=== PATIENT | female | born 1950 | race Caucasian/White ===

== ENCOUNTER 2021-10-06 14:20 | Outpatient (CLI) | payer OTHER, SELFPAY | END 2021-10-06 14:21 | disposition home or self-care (01) | LOC: LKVREF 14:21 | PROVIDERS: Visit Provider Student in an Organized Health Care Education/Training Program | DX: R35.0 Frequency of micturition (principal); R42 Dizziness and giddiness; R53.1 Weakness; N39.0 Urinary tract infection, site not specified | CPT/HCPCS: 87086 ==

== ENCOUNTER 2022-10-31 14:00 | Outpatient (RCR) | payer OTHER, SELFPAY ==
--- NOTE | 2022-08-22 16:05 | PT.OPE ---
PT [facility] Eval PT [facility] Eval Start: 08/22/22 12:41 Freq: Status: Active Protocol: Document 08/22/22 16:04 CJT (Rec: 08/22/22 16:05 CJT [id number]) E-signed By Venu Yepez PT Physical Therapy Outpatient Evaluation Insurance Information Recert Due Date 11/20/22 Insurance Name Other; See Comments Insurance Information/Comments [employer] Medical Diagnosis R26.9 - Other abnormalities of gait and mobility Treating Diagnosis R26.9 - Other abnormalities of gait and mobility Referring Meliza Ballard DO Subjective Subjective Pt reports she doesn't have very good balance lately. sometimes if I move too fast I feel like I'm going to fall over. Pt had a fall two weeks ago. Fell on her L knee and still has some swelling and bruising. Tripped over a hose while watering her plants. Pt tried kneeling on her L knee the other day and had quite a bit of pain. Continues to have bruising and swelling around L knee. Pt wants to be more stable while going up and down stairs. Pt has arthritis in her feet and tends to have a lot of pain in the morning. Has to take one steps at a time when going down stairs in the AM. Pt has B TKA (DOS: 2013). Pt likes to walk and ride her bike. Goes to the gym occasionally and uses the elliptical and treadmill. Date of Last Physician Visit 08/06/22 Current Work Status Retired Precautions Therapy Limitations/Systems Review Not Limited Objective Other/Pertinent Objective R Ankle DF ROM: 11/4 L Ankle DF ROM: 9/3 R knee flexion: 5/5 MMT R knee extension: 5/5 MMT L knee flexion: 5/5 MMT L knee extension: 5/5 MMT 4-Stage Balance Test: Pt able to complete stages I, II on first attempt, stage III on second attempt; requires multiple attempts bilaterally to stand single leg for 10 seconds. mCTSIB: 120/120 normal sway throughout TU.31 seconds 5 Times Zzj-pq-Drsan: 10.55 seconds 30-Second Thx-ot-Unsib: 13 reps R knee circumference at patella: 40.5cm L knee circumference at patella: 41.0cm Assessment Assessment/Impression Alia is a very pleasant 71 year old female who presents to our clinic with concerns regarding her balance. Pt did have a fall last week, landed on her L knee and presents with bruising and swelling around her L knee. The pain is not bad unless she puts weight on her knee. In regard to Alia's concerns for her balance, her balance is actually quite good. 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 Her scores for TUG , 5-times dhk-zb-dpsel and 30- second eui-xy-lcadh are well above scores that would classify her for a fall risk in her age group. Currently, Alia's concerns about her balance and her recent fall in her garden are my top concerns. She will benefit from balance training her in our clinic to not only improve her balance, but to also improve her confidence in her balance. The nature of the pts condition was explained and all questions were answered to the pts satisfaction. Skilled PT services are medically necessary to address deficits and return patient to highest level of function. Recommend physical therapy sessions 1/ week for 4-8 weeks. Pt agrees with this plan. Printout of HEP was given for I completion and pt gives verbal understanding of each exercise . Primary Functional Limitations Walking over uneven ground, stairs Plan of Care Rehabilitation Potential Good Physical Therapy Goals STG - To be completed in 2-3 weeks: 1. Pt will perform tandem balance for 60 seconds on either side on first attempt to show improved balance with NBOS to reduce risk of falls. LTG - To be completed in 8 weeks: 1. Pt will be I with HEP so that she may I manage progression of symptoms. 2. Pt will demo ability to stand on one leg without assistance from hands for at least 30 seconds to show improved SL balance to reduce risk of falls. 3. Pt will negotiate 2 x 10 steps without use of handrail and marking time pattern to show improved functional strength and confidence on stairs. 4. Pt will ambulate 500+ ft over uneven ground without LOB so that she may walk throughout her yard and garden with reduced risk of falls. Treatment Plan/Direct Interventions Gait Training,Manual Therapy, Neuromuscular Re-ed,Self-Care/ Home Management,Therapeutic Exercises Frequency/Duration 1/week for 4-8 weeks Patient Will Be Discharged From Therapy Completion of LTG(s),Skills Plateau,Independent w/HEP, Independently Progressing Evaluation Billing Untimed Code Treatment Minutes 38 PT Eval No Charge No Complexity Low Certification Information Initial Certification Date 08/22/22 Ending Certification Date 11/20/22 Provider Signature Shows Agreement With POC & Medical Necessity Physician Signature & Date Requested Please Sign/Date Here Physician Comment/Change : Physician NPI Number #
== END 2022-11-01 15:59 | disposition home or self-care (01) ==
PROVIDERS: PCP Family Medicine; Visit Provider Family Medicine
DX: R26.89 Other abnormalities of gait and mobility (principal); Z51.89 Encounter for other specified aftercare
CPT/HCPCS: 97110; 97112; 97140; 97161; 97530

== ENCOUNTER 2023-09-11 10:30 | Outpatient (RCR) | payer OTHER, SELFPAY ==
--- NOTE | 2023-08-06 15:02 | PT.OPE ---
PT [facility] Eval PT [facility] Outpatient Eval Start: 08/06/23 07:50 Freq: Status: Active Protocol: Document 08/06/23 14:58 CJT (Rec: 08/06/23 15:02 CJT [id number]) E-signed By Venu Yepez PT Physical Therapy Outpatient Evaluation Insurance Information Recert Due Date 11/04/23 Insurance Name Other; See Comments Insurance Information/Comments [employer] Medical Diagnosis M54.5 - low back pain M79.606 - pain in leg Treating Diagnosis M54.5 - low back pain M25.551 - R hip pain M25.552 - L hip pain Referring Raegan Lang Subjective Subjective Pt reports she was having some pain in her lower back over the past few months, which is not new for her. Started seeing chiro when she was in [place] back in June. Did some traction while she was there as well as ultrasound and what sounds like a vibration plate. This treatment was somewhat helpful . Pt drove herself back from [place] and after this is when she started noticing more pain into B glutes and down the back of each leg. Was prescribed prednisone and this has been very helpful. Had been having a lot of pain with bending forward. Leaning forward over the kitchen sink caused increased pain. Sitting seems to be fine. Standing aggravates her pain. Pain also reported with rolling over in bed at night. When she is walking the pain is high and then eventually decreases after about 30 minutes of walking. Tries to walk about 45-60 minute everyday. Pain Comments 03/13 currently 11/11 before prednisone Date of Last Physician Visit 07/31/23 Current Work Status Retired Preferred Name Alia Precautions Therapy Limitations/Systems Review Not Limited Objective Other/Pertinent Objective Lumbar ROM Extension - no limitations, no pain Flexion - pain noted in B glutes and B hamstring regions R/L Side Bend - no limitations , no pain R/L Rotation - no limitations, no pain. R Hip ROM Flexion - 120 IR/ER - 32/27 Extension - 10 L Hip ROM Flexion - 120 IR/ER - 20/33 Extension - 10 R knee ROM - 0-0-120 L knee ROM - 0-0-120 R ankle PF/DF(kf)/DF(ke) - DNT L ankle PF/DF(kf)/DF(ke) - DNT R Hip Strength Flexion - 4/5 MMT Abduction - 4/5 MMT Adduction - 5/5 MMT IR - 5/5 MMT ER - 5/5 MMT Extension - 4/5 MMT L Hip Strength Flexion - 4/5 MMT Abduction - 4/5 MMT Adduction - 5/5 MMT IR - 5/5 MMT ER - 5/5 MMT Extension - 4/5 MMT R knee Extension - 5/5 MMT R Knee Flexion - 5/5 MMT L knee Extension - 5/5 MMT L knee Flexion - 5/5 MMT R ankle DF - 4+/5 MMT L ankle DF - 4+/5 MMT Palpation: pt reports pain/ tenderness with palpation to R >L glute med, piriformis Gait: minimal gait deviations noted Special Testing Slump: negative SLR: negative FADIR: negative HUY: negative Krystyna's: positive R>L Piriformis: positive R>L Hamstring: negative B Pelvis: R anterior, possible L upslip Leg Length (R/L): 84.0/85.0cm Assessment Assessment/Impression Alia is a very pleasant 72 year old female who presents to our clinic for evaluation and treatment of low back pain with associated B hip pain. Pts pain is primarily located in upper glute region bilaterally. Testing today reveals deficits in pts ROM and strength in B LEs (See objective). While she is concerned that her hip pain is coming from her back, I have a suspicion that her hip pain is due to muscle tightness. Pt had very high amount of pain with palpation to R>L glute med although she did note that this pain seems to be a bit different than the pain she has been experiencing. I do suspect that the effects of her prednisone may be masking some of the pain at this time. We will continue to test for spine involvement movement forward and address ROM and strength deficits in the meantime. The nature of the pts condition was explained and all questions were answered to the pts satisfaction. Skilled PT services are medically necessary to address deficits and return patient to highest level of function. Recommend physical therapy sessions 1/ week for 8 weeks. Pt agrees with this plan. Printout of HEP was given for I completion and pt gives verbal understanding of each exercise . Primary Functional Limitations Standing, walking Plan of Care Rehabilitation Potential Good Physical Therapy Goals STG - To be completed in 2-3 weeks: 1. Pt will report max 2/10 pain in B hips with standing so that she may go for walks with tolerable level of pain. LTG - To be completed in 8 weeks: 1. Pt to be I with HEP so that she may I manage progression of symptoms. 2. Pt will demo 5/5 MMT for all LE motions B to provide greater stability to pelvis and lumbar spine with activities including walking and riding her bike. 3. Pt will demo negative Krystyna's test bilaterally as indication of reduced anterior thigh and hip tightness to reduce strain on lumbar spine. Treatment Plan/Direct Interventions Heat,Joint Mobilization,Manual Therapy,Neuromuscular Re-ed, Self-Care/Home Management, Therapeutic Exercises Frequency/Duration 1/week for 8 weeks Patient Will Be Discharged From Therapy Completion of LTG(s),Skills Plateau,Independent w/HEP, Independently Progressing Evaluation Billing Untimed Code Treatment Minutes 44 PT Eval No Charge No Complexity Low Certification Information Initial Certification Date 08/06/23 Ending Certification Date 11/04/23 Provider Signature Required Yes Provider Signature Shows Agreement With POC & Medical Necessity Physician NPI Number Write NPI# Here Physician Comment/Change : Physician Signature & Date Requested Please Sign/Date Here
== END 2024-01-09 23:59 | disposition home or self-care (01) ==
PROVIDERS: PCP Physician Assistant Medical; Visit Provider Physician Assistant Medical
DX: M54.50 Low back pain, unspecified (principal); M79.606 Pain in leg, unspecified; M25.551 Pain in right hip; M25.552 Pain in left hip; Z51.89 Encounter for other specified aftercare
CPT/HCPCS: 97110; 97140; 97161

== ENCOUNTER 2023-10-29 14:17 | Outpatient (CLI) | payer OTHER, SELFPAY ==
--- NOTE | 2023-10-29 14:30 | CRLHL7_ITS ---
For Patients: As a result of the 21st Century Cures Act, medical imaging exams and procedure reports are released immediately into your electronic medical record. You may view this report before your referring provider. If you have questions, please contact your health care provider. Indication: LOW BACK PAIN Technique: Noncontrast sagittal and axial T1, T2, and sagittal STIR sequences are provided. Comparison: No prior studies available for comparison at this institution. Findings: There are 5 lumbar type vertebral bodies. Levoscoliosis with apex at L1-2. No fractures. No prevertebral edema. Modic type 1 endplate degenerative changes at L4-5 and type 2 degenerative changes at L5-S1. Anterior osteophytic spurring L2-3 through L5-S1 grade 1 anterolisthesis at L4-5. The conus medullaris is normal in signal and location. Sigmoid colon diverticulosis. T12-L1: No significant spinal canal stenosis or neural foramen narrowing. L1-2: Mild disc bulge and facet arthrosis. No significant spinal canal stenosis or neural foramen narrowing. L2-3: Moderate interspace narrowing. Circumferential disc bulge and endplate osteophytic ridging. Bilateral facet arthrosis and ligamentum flavum buckling. Mild to moderate spinal canal stenosis. Mild right neural foraminal narrowing. No left neural foraminal narrowing. L3-4: Disc bulge eccentric to left with endplate spondylotic ridging and bilateral facet arthrosis. Mild left subarticular recess stenosis and central canal stenosis. Mild neural foramen narrowing bilaterally. L4-5: Moderate interspace narrowing. Grade 1 anterolisthesis. Circumferential disc bulge and endplate spondylitic ridging. Advanced facet arthrosis and ligamentum flavum buckling. Severe spinal canal stenosis. Zjzo-mz-bowkjlbd neural foraminal narrowing bilaterally with possible impingement of the left L4 nerve roots. Mild flattening of the exiting right L4 nerve roots. L5-S1: Disc bulge eccentric to the left with endplate spondylotic ridging. Advanced facet arthrosis. Mild spinal canal stenosis. Moderate left neural foraminal narrowing and twut-zc-jfubgdwg right neural foraminal narrowing. Impression: 1. Levoscoliosis with apex at L1-2. No acute fractures. Degenerative grade 1 anterolisthesis at L4-5. Modic type 1 endplate degeneration at L4-5 and type 2 degenerative changes at L5-S1. 2. At L2-3, yudm-yq-qivgmzcg spinal canal stenosis and mild right neural foramen narrowing. 3. At L3-4, mild left subarticular recess stenosis and mild neural foramen narrowing bilaterally. 4. At L4-5, severe spinal canal stenosis and mild-moderate neural foraminal narrowing bilaterally. 5. At L5-S1, mild spinal canal stenosis, moderate left and mild-moderate right neural foraminal narrowing. Dictated by Epifanio Ortiz MD @ 10/30/2023 9:55:56 AM (Electronically Signed)
== END 2023-10-29 14:18 | disposition home or self-care (01) ==
LOC: MRI 14:20
PROVIDERS: PCP Physician Assistant Medical; Visit Provider Physician Assistant Medical
DX: M54.50 Low back pain, unspecified (principal); M48.061 Spinal stenosis, lumbar region without neurogenic claudication; M51.26 Other intervertebral disc displacement, lumbar region; M51.27 Other intervertebral disc displacement, lumbosacral region; M79.606 Pain in leg, unspecified
CPT/HCPCS: 72148

== ENCOUNTER 2024-11-20 13:31 | Outpatient (CLI) | payer OTHER, SELFPAY ==
--- NOTE | 2024-11-20 13:40 | CRLHL7_ITS ---
For Patients: As a result of the Century Cures Act, medical imaging exams and procedure reports are released immediately into your electronic medical record. You may view this report before your referring provider. If you have questions, please contact your health care provider. INDICATION: BILATERAL SCREENING MAMMOGRAM, ASYMPTOMATIC 73 Y/O FEMALE COMPARISON: 06/27/2023 TECHNIQUE: Digital mammogram in CC and MLO projections including computer-aided detection (CAD) and tomosynthesis. BREAST COMPOSITION: The breasts are heterogeneously dense, which may obscure small masses. FINDINGS: No suspicious findings. ASSESSMENT: BI-RADS 1 Negative RECOMMENDATION: Annual screening mammogram. A lay language report of this examination will be provided to the patient. Dictated by: Paulette Atkins MD @ 11/25/2024 08:46:25 (Electronically Signed)
== END 2024-11-20 13:32 | disposition home or self-care (01) ==
LOC: MAMMO 13:31
PROVIDERS: PCP Physician Assistant Medical; Visit Provider Physician Assistant Medical
DX: Z12.31 Encounter for screening mammogram for malignant neoplasm of breast (principal); R92.333 Mammographic heterogeneous density, bilateral breasts
CPT/HCPCS: 77063; 77067